=== PATIENT | female | born 1940 | race Caucasian/White ===

== ENCOUNTER 2016-08-09 18:35 | Emergency (ER) | payer OTHER ==
[~2016-08-09] VITALS: Ht 162.6 cm; Wt 131.5 kg
[2016-08-09] MEDS ORDERED: EPINEPHRINE SYRINGE 0.1 MG/ML, 10ML ONE (18:37)
[2016-08-09] MEDS ORDERED: CODE BLUE RESPONSE XX ONE (19:30)
== END 2016-08-09 20:49 | disposition expired ==
LOC: EDBD 18:35 → ED 19:40
DX: I46.9 Cardiac arrest, cause unspecified (principal); E66.9 Obesity, unspecified; I10 Essential (primary) hypertension; E11.9 Type 2 diabetes mellitus without complications
CPT/HCPCS: 92950; 99285